=== PATIENT | male | born 1995 | race American Indian/Alaskan Native ===

== ENCOUNTER 2017-09-05 05:52 | Emergency (ER) | payer SELFPAY ==
[2017-09-05 06:01] VITALS: BP 128/82
== END 2017-09-05 06:30 | disposition left against medical advice (07) ==
LOC: ED 05:52
DX: Z53.21 Procedure and treatment not carried out due to patient leaving prior to being seen by health care provider (principal)

== ENCOUNTER 2017-09-05 19:14 | Emergency (ER) | payer SELFPAY ==
[2017-09-05] MEDS ORDERED: MOTRIN PO ONE (19:35)
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
[2017-09-05 23:52] VITALS: BP 129/84
== END 2017-09-05 23:52 | disposition home or self-care (01) ==
LOC: ED 19:14
DX: S46.912A Strain of unspecified muscle, fascia and tendon at shoulder and upper arm level, left arm, initial encounter (principal); S46.911A Strain of unspecified muscle, fascia and tendon at shoulder and upper arm level, right arm, initial encounter; S66.911A Strain of unspecified muscle, fascia and tendon at wrist and hand level, right hand, initial encounter; S20.212A Contusion of left front wall of thorax, initial encounter; S20.211A Contusion of right front wall of thorax, initial encounter; F17.210 Nicotine dependence, cigarettes, uncomplicated; V89.2XXA Person injured in unspecified motor-vehicle accident, traffic, initial encounter; Y93.89 Activity, other specified; Y92.89 Other specified places as the place of occurrence of the external cause; Y99.8 Other external cause status
CPT/HCPCS: 71020; 93005; 93010; 99283